=== PATIENT | female | born 1975 | race Caucasian/White ===

== ENCOUNTER 2020-08-04 20:07 | Emergency (ER) | payer OTHER, BC ==
[2020-08-04 20:17] VITALS: BP 151/119
[2020-08-04] MEDS ORDERED: KETOROLAC TROMETHAMINE INJ/PF 30 MG/1 ML SDV IV ONE (20:23)
[2020-08-04] MEDS ORDERED: ONDANSETRON HCL INJ/PF 4 MG/2 ML SDV IV ONE (20:23)
--- NOTE | 2020-08-04 20:27 | ER Document Report ---
ED Medical Screen (RME) - General Chief Complaint: Flank Pain Stated Complaint: RIGHT SIDE FLANK PAIN Time Seen by Provider: 08/04/20 20:21 Primary Care Provider: EDMUND CHAVARRIA MD [Primary Care Provider] - Follow up as needed - [facility] Notes: 08/04/20 20:25 44-year-old female to the emergency department with complaints of acute onset of flank pain with nausea began at 730 tonight. Denies any chest pain, shortness of breath, fevers, chills. She states she is never had a kidney stone before. She is not sure that she has seen any blood in her urine. I performed a brief medical screening exam on the patient determined that the patient needs further evaluation and management by main side provider. I have placed initial orders to help expedite care. - Related Data Allergies/Adverse Reactions: codeine Allergy (Verified 08/04/20 20:14) Home Medications: zoloft. diavan. requip. iron. magnesium Past Medical History - Social History Chew tobacco use (# tins/day): No Frequency of alcohol use: None Physical Exam - Vital signs Vitals: Temp Pulse Resp BP Pulse Ox 98.3 F 103 H 18 151/119 H 100 08/04/20 20:14 08/04/20 20:14 08/04/20 20:14 08/04/20 20:14 08/04/20 20:14 Course - Vital Signs Vital signs: Temp Pulse Resp BP Pulse Ox 98.3 F 103 H 18 151/119 H 100 08/04/20 20:14 08/04/20 20:14 08/04/20 20:14 08/04/20 20:14 08/04/20 20:14 Doctor's Discharge - Discharge Referrals: EDMUND CHAVARRIA MD [Primary Care Provider] - Follow up as needed
[2020-08-04 21:15] LABS: APPEARANCE,URINE CLOUDY; BILIRUBIN,URINE NEGATIVE (NEGATIVE); COLOR,URINE YELLOW; GLUCOSE, URINE NEGATIVE (NEGATIVE); KETONES,URINE NEGATIVE (NEGATIVE); LEUKOCYTE ESTERASE,URINE MODERATE (NEGATIVE); NITRITE,URINE POSITIVE (NEGATIVE); PROTEIN,URINE >=500 mg/dL (NEGATIVE); URINE SPECIFIC GRAVITY 1.013; UROBILINOGEN,URINE NEGATIVE mg/dL (<2.0)
[2020-08-04] MEDS ORDERED: KETOROLAC TROMETHAMINE INJ/PF 30 MG/1 ML SDV ONE (22:27)
[2020-08-04] MEDS ORDERED: ONDANSETRON HCL INJ/PF 4 MG/2 ML SDV ONE (22:27)
[2020-08-04] MEDS ORDERED: MORPHINE SULFATE 10 MG/ML INJ IV ONE (23:01)
[2020-08-04] MEDS ORDERED: CEFTRIAXONE 1 GM/D5W RTU 1 GM/50 ML RTUPB IV ONE (23:02)
--- NOTE | 2020-08-04 23:04 | ER Document Report ---
ED GI/ <TRAE JOE - Last Filed: 08/05/20 17:31> - Related Data Home Medications: zoloft. diavan. requip. iron. magnesium <GEORGE GREEN - Last Filed: 08/06/20 07:40> - General Chief Complaint: Flank Pain Stated Complaint: RIGHT SIDE FLANK PAIN Time Seen by Provider: 08/04/20 20:21 Primary Care Provider: EDMUND CHAVARRIA MD [NO LOCAL MD] - Follow up as needed Notes: Patient is a 44-year-old female who comes emergency department for chief complaint of sudden onset of right flank pain that radiates to the right mid to lower abdomen that started at 1930 tonight. She states that the pain intermittently becomes severe and nauseating but she is not vomiting. She denies dysuria, hematuria, fever. She denies history of kidney stones. Patient has a history of tubal ligation, hypertension, anxiety/depression. She denies medical history otherwise, she denies history of IV drug abuse. (GEORGE GREEN) - Related Data Allergies/Adverse Reactions: codeine Allergy (Verified 08/04/20 20:14) Past Medical History - General Information source: Patient - Social History Smoking Status: Never Smoker Chew tobacco use (# tins/day): No Frequency of alcohol use: None Lives with: Family Family History: Reviewed & Not Pertinent <GEORGE GREEN - Last Filed: 08/06/20 07:40> Review of Systems - Review of Systems Constitutional: No symptoms reported EENT: No symptoms reported Cardiovascular: No symptoms reported Respiratory: No symptoms reported Gastrointestinal: See HPI Genitourinary: See HPI Female Genitourinary: No symptoms reported Musculoskeletal: No symptoms reported Skin: No symptoms reported Hematologic/Lymphatic: No symptoms reported Neurological/Psychological: No symptoms reported <GEORGE GREEN - Last Filed: 08/06/20 07:40> Physical Exam <GEORGE GREEN - Last Filed: 08/06/20 07:40> - Vital signs Vitals: Temp Pulse Resp BP Pulse Ox 98.3 F 103 H 18 151/119 H 100 08/04/20 20:14 08/04/20 20:14 08/04/20 20:14 08/04/20 20:14 08/04/20 20:14 - Notes Notes: GENERAL: Patient appears mildly uncomfortable and shifting occasionally but she is not in severe distress HEAD: Normocephalic, atraumatic. EYES: Pupils equal, round, and reactive to light. Extraocular movements intact. ENT: Oral mucosa moist, tongue midline. Oropharynx unremarkable. Airway patent. NECK: Full range of motion. Supple. Trachea midline. No lymphadenopathy. LUNGS: Clear to auscultation bilaterally, no wheezes, rales, or rhonchi. No respiratory distress. Non-tender chest wall. HEART: Regular rate and rhythm. No murmur ABDOMEN: Tenderness in the general right lower abdomen, nonspecific, no guarding. EXTREMITIES: Moves all 4 extremities spontaneously. No edema, normal radial and dorsalis pedis pulses bilaterally. No cyanosis. BACK: Mild right-sided CVA tenderness, no tenderness on the left side. No cervical, thoracic, lumbar midline tenderness. No saddle anesthesia, normal distal neurovascular exam. Moves all extremities in full range of motion. NEUROLOGICAL: Alert and oriented x3. Normal speech. Cranial nerves II through XII grossly intact. Strength 5/5 in all extremities. PSYCH: Normal affect, normal mood. SKIN: Warm, dry, normal turgor. No rashes or lesions noted. (GEORGE GREEN) Course - Laboratory Result Diagrams: 08/04/20 23:22 08/04/20 23:22 <TRAE JOE - Last Filed: 08/05/20 17:31> - Laboratory Result Diagrams: 08/04/20 23:22 08/04/20 23:22 <GEORGE GREEN - Last Filed: 08/06/20 07:40> - Re-evaluation Re-evalutation: 08/05/20 12:00 Patient was called and was updated regarding her CT report findings as requested per George Green. Patient advised that she does have a 1 mm stone and that she will need to call urology tomorrow for further evaluation. Patient advised that stones can increase her risk for infection and that she should return immediately for any fever, vomiting or worsening of symptoms. Patient verbalized understanding and is agreeable with plan of care. (TRAE JOE) Patient is initially uncomfortable on my exam. She has generalized tenderness in the right lower abdomen and also in the right flank. She is not vomiting but reports nausea. She is not febrile. CBC unremarkable, chemistry unremarkable, negative. Urinalysis indicates infection, patient started on Rocephin, culture placed. I did review CAT scan from triage and this shows right ovarian cyst, hydronephrosis, stone in the kidney, no acute findings. Discussed with patient, transvaginal ultrasound was performed and shows benign ovarian cyst. Patient will be treated for pyel onephritis, discussed ovarian cyst and precautions, discussed follow-up with primary care and return precautions. 08/05/20 On review of studies I realized that I had mis-read the radiology interpretation and there is a possible 1 mm distal ureteral stone along with hydronephrosis and infection in the urine. Urine does have positive nitrates, white blood cells, red blood cells. Patient had been placed on antibiotics, however I called her at [phone] and left her message to call back so I can discuss importance of close urology follow-up and re-stress return precautions. (GEORGE GREEN) - Vital Signs Vital signs: Temp Pulse Resp BP Pulse Ox 98.3 F 86 14 151/119 H 100 08/04/20 20:14 08/05/20 03:30 08/05/20 03:30 08/04/20 20:14 08/05/20 03:30 - Laboratory Laboratory results interpreted by me: 08/04/20 08/04/20 08/04/20 20:37 23:22 23:22 Hct 35.4 L RDW 15.1 H Lymph % (Auto) 12.4 L Seg Neutrophils % 81.5 H Sodium 135.9 L Glucose 113 H Total Protein 6.2 L Urine Protein >=500 H Urine Blood LARGE H Urine Nitrite POSITIVE H Ur Leukocyte Esterase MODERATE H Discharge <TRAE JOE - Last Filed: 08/05/20 17:31> <GEORGE GREEN - Last Filed: 08/06/20 07:40> - Discharge Clinical Impression: Right flank pain, Right sided abdominal pain Urinary tract infection Qualifiers: Urinary tract infection type: site unspecified Hematuria presence: without hematuria Qualified Code(s): N39.0 - Urinary tract infection, site not specified Ovarian cyst Qualifiers: Laterality: right Qualified Code(s): N83.201 - Unspecified ovarian cyst, right side Condition: Stable Disposition: HOME, SELF-CARE Additional Instructions: Your evaluation is consistent with an infection of the right kidney, take the antibiotics as prescribed to completion. Take the nausea and pain medication if needed, drink plenty of fluids and rest. You do have a cyst on the right ovary but this should simply resolve with time. You also have stones in your gallbladder and a small stone in the right kidney. Follow-up with primary care for additional management. Return if you worsen including severe worsening pain, vomiting, fever, or any other concerning or worsening symptoms. Prescriptions: Cephalexin Monohydrate [Keflex 500 mg Capsule] 500 mg PO QID 10 Days #40 capsule Hydrocodone/Acetaminophen [[place] 5-325 mg Tablet] 1 - 2 tab PO Q6H PRN #12 tablet PRN Reason: Ondansetron [Zofran Odt 4 mg Tablet] 1 - 2 tab PO Q4H PRN #15 tab.rapdis PRN Reason: For Nausea/Vomiting Forms: Treatment of Relative/Child Referrals: EDMUND CHAVARRIA MD [NO LOCAL MD] - Follow up as needed
[2020-08-04 23:35] LABS: ABSOLUTE LYMPHOCYTES (AUTO) 1.2 10^3/uL (0.5-4.7); ABSOLUTE MONOCYTES (AUTO) 0.5 10^3/uL (0.1-1.4); ABSOLUTE NEUT (AUTO) 7.8 10^3/uL (1.7-8.2); BASOPHILS % (AUTO) 0.3 % (0-2); EOSINOPHILS % (AUTO) 0.3 % (0-6); HEMATOCRIT 35.4 % (36.0-47.0); HEMOGLOBIN 12.1 g/dL (12.0-15.5); LYMPHOCYTES % (AUTO) 12.4 % (13-45); MEAN CORPUSCULAR HEMOGLOBIN 29.1 pg (27.0-33.4); MEAN CORPUSCULAR HGB CONC 34.1 g/dL (32.0-36.0); MEAN CORPUSCULAR VOLUME 85 fl (80-97); MONOCYTES % (AUTO) 5.5 % (3-13); PLATELET COUNT 181 10^3/uL (150-450); RED BLOOD COUNT 4.15 10^6/uL (3.72-5.28); RED CELL DISTRIBUTION WIDTH 15.1 % (11.5-14.0); SEGMENTED NEUTROPHILS % (AUTO) 81.5 % (42-78); TOTAL CELLS COUNTED % (AUTO) 100 %; WHITE BLOOD COUNT 9.5 10^3/uL (4.0-10.5)
[2020-08-04 23:58] LABS: ALBUMIN 3.7 g/dL (3.5-5.0); ALKALINE PHOSPHATASE 75 U/L (38-126); ANION GAP 6 (5-19); ASPARTATE AMINO TRANSFERASE 21 U/L (14-36); BILIRUBIN,DIRECT 0.2 mg/dL (0.0-0.4); BILIRUBIN,TOTAL 0.4 mg/dL (0.2-1.3); BLOOD UREA NITROGEN 12 mg/dL (7-20); CALCIUM 8.5 mg/dL (8.4-10.2); CARBON DIOXIDE 25 mmol/L (22-30); CHLORIDE 105 mmol/L (98-107); GLUCOSE 113 mg/dL (75-110); POTASSIUM 3.7 mmol/L (3.6-5.0); TOTAL PROTEIN 6.2 g/dL (6.3-8.2)
--- NOTE | 2020-08-05 00:34 | RADIOLOGY REPORT (SQ) ---
EXAM DESCRIPTION: CT ABDOMEN PELVIS WITHOUT IV CONTRAST COMPLETED DATE/TME: 08/04/2020 20:24 CLINICAL HISTORY: 44 years, Female, flank pain, [place] COMPARISON: None. TECHNIQUE: Noncontrast images of the abdomen and pelvis were obtained. Images stored on PACS. All CT scanners at this facility use dose modulation, iterative reconstruction, and/or weight based dosing when appropriate to reduce radiation dose to as low as reasonably achievable (ALARA). [facility]: Dose Right [facility]: CareDose [facility]: Dose Right [facility]: Teradose 4D [facility]: Smart [place] LIMITATIONS: None. FINDINGS: The visualized lung bases are clear. There is mild right hydronephrosis. Right ureter is dilated to just above the pelvic inlet. There is a punctate, 1 mm calcification within the right lower quadrant on axial image 67 and coronal image 41, suspicious for a stone in the right lower ureter. Right ovary also has an asymmetrically enlarged appearance in this region of the right pelvis and additional evaluation with pelvic ultrasound or contrast-enhanced CT is recommended. There is no left nephrolithiasis or hydronephrosis. There is cholelithiasis measuring up to 12 mm. Gallbladder is distended but not dilated and there is no definite pericholecystic fluid or fat stranding. The appendix is within normal limits. There is no abnormal bowel dilation. There is no free fluid or free air. Scattered arterial calcifications are noted. There is no abdominal aortic aneurysm. There is an incidental tiny fat-containing umbilical hernia. Disc space loss with marginal osteophyte formation and moderate canal stenosis and moderate to severe bilateral foraminal stenosis are noted at L5-S1. IMPRESSION: 1. Moderate hydronephrosis. There is a 1 mm calcification within the right pelvis suspicious for stone within the right lower ureter at the pelvic inlet. This is also within the region of an asymmetrically enlarged appearing right ovary and additional evaluation with pelvic ultrasound or contrast-enhanced CT is recommended. 2. Cholelithiasis without gross CT evidence of acute cholecystitis. 3. Incidental arterial vascular calcifications and advanced degenerative changes at the lumbosacral junction. TECHNICAL DOCUMENTATION: Quality ID # [id number]: Final reports with documentation of one or more dose reduction techniques (e.g., Automated exposure control, adjustment of the mA and/or kV according to patient size, use of iterative reconstruction technique) copyright 2011 [employer]- All Rights Reserved
--- NOTE | 2020-08-05 01:52 | RADIOLOGY REPORT (SQ) ---
EXAM DESCRIPTION: US PELVIS TRANSVAGINAL COMPLETED DATE/TME: 08/05/2020 00:56 CLINICAL HISTORY: 44 years, Female, abd pain, nausea, eval cyst seen on ct COMPARISON: CT 08/05/2020 TECHNIQUE: Emergent pelvic ultrasound LIMITATIONS: None. FINDINGS: The uterus measures 10 x 5 x 5 cm. The myometrium is homogenous. The endometrium measures 16 mm in thickness. The right ovary measures 3.0 x 3.0 x 2.6 cm, the left 2.4 x 1.4 x 1.8 cm. Arterial and venous flow to each ovary. There is a simple 1.8 x 1.6 cm cyst of the right ovary likely a dominant follicle. No solid adnexal mass. No free fluid IMPRESSION: Simple 1.8 cm right ovarian cyst/follicle. This does not require further assessment. Recommendations for f/u of ovarian anechoic simple cyst, simple cyst with single thin <3 mm septation, or focal calcification in wall of cyst (1): Pre-menopause: <= 5 cm No follow-up imaging recommended >5 cm - <=7 cm US f/u annually >7 cm Consider MR w/IVC or surgical evaluation Post-menopause (>=1 year from last menstrual period): <=3 cm No follow-up imaging recommended >3 cm - <=7 cm US f/u annually >7 cm Consider MR w/IVC or surgical evaluation (1) Recommendations based on 2010 SRU Consensus Conference Statement on the Management of Asymptomatic Ovarian and Other Adnexal Cysts Imaged at US: Radiology. 2009;256(3):719-84 copyright 2010 [employer]- All Rights Reserved
[2020-08-05] MEDS ORDERED: HYDROCODONE/ACETAMINOPHEN 5-325 MG (6 TAB/ER DISP) PO PRN (03:12)
[2020-08-05] MEDS ORDERED: ONDANSETRON ODT 4 MG TAB (6 TAB/ER DISP) PO PRN (03:13)
== END 2020-08-05 03:45 | disposition home or self-care (01) ==
LOC: ER 20:07
DX: N39.0 Urinary tract infection, site not specified (principal); N83.291 Other ovarian cyst, right side; K80.20 Calculus of gallbladder without cholecystitis without obstruction; M47.817 Spondylosis without myelopathy or radiculopathy, lumbosacral region; R10.9 Unspecified abdominal pain; R11.0 Nausea; I10 Essential (primary) hypertension; F32.9 Major depressive disorder, single episode, unspecified; F41.9 Anxiety disorder, unspecified; Z98.51 Tubal ligation status; Z79.899 Other long term (current) drug therapy; Z88.6 Allergy status to analgesic agent; Z88.5 Allergy status to narcotic agent
CPT/HCPCS: 99285; 96375; 96365; 36415; 87086; 84703; 85025; 87088; 80053; 81001; 87186; 76830; 93976; 74176; J1885; J2270; J2405; J0696